=== PATIENT | female | born 1965 | race Caucasian/White ===

== ENCOUNTER 2016-11-27 19:44 | Emergency (ER) | payer BC ==
[~2016-11-27] VITALS: Ht 165.1 cm; Wt 97.1 kg
[~2016-11-27 19:44] MED LIST: ASA PO; Colace PO; Levothroid,Synthroid PO; Milk Of Magnesia,MOM PO; Motrin PO; Ultram PO
[2016-11-27] MEDS ORDERED: NAPROSYN500 MG PO (21:51)
[2016-11-27 22:09] VITALS: BP 148/84
== END 2016-11-27 22:10 | disposition home or self-care (01) ==
LOC: EME 19:44 → EXP 19:44
DX: M25.461 Effusion, right knee (principal); M25.561 Pain in right knee
CPT/HCPCS: 73564; 93971; 99281; 99284